=== PATIENT | male | born 1940 | race African-American/Black ===

== ENCOUNTER 2019-01-17 05:57 | Inpatient (IN) | payer MEDICARE, OTHER ==
[~2019-01-17] VITALS: Ht 175.3 cm; Wt 108.4 kg
[2019-01-17] MEDS ORDERED: FAMOTIDINE 20MG/2ML VIAL IV STA (06:38)
[2019-01-17 08:05] LABS: BASOPHILS % 0.8 % (0.0-2.0); EOSINOPHILS % 1.6 % (0.0-5.0); HEMATOCRIT. 39.3 % (42.0-52.0); HEMOGLOBIN. 12.7 g/dL (14.0-18.0); LYMPHOCYTES % 11.9 % (20.0-50.0); MEAN CORPUSCULAR HEMOGLOBIN 31.1 pg (28.0-32.0); MEAN CORPUSCULAR VOLUME 96.3 fL (80.0-94.0); MEAN PLATELET VOLUME 8.5 fl (7.4-10.4); MONOCYTES % 6.3 % (2.0-8.0); NEUTROPHILS % 79.4 % (40.0-76.0); PLATELET 243 x1000/uL (130-400); RED BLOOD CELL COUNT 4.08 mill/uL (4.7-6.1); RED CELL DISTRIBUTION WIDTH 14.1 % (11.6-14.6)
[2019-01-17 08:12] LABS: PROTHROMBIN TIME 10.4 sec (9.6-11.0)
[2019-01-17 08:13] LABS: CHLORIDE 115 mEq/L (98-107)
[2019-01-17 11:01] LABS: CLARITY URINE CLEAR (CLEAR); COLOR URINE YELLOW (YELLOW); KETONES URINE NEGATIVE (NEGATIVE); LEUKOCYTE ESTERASE URINE TRACE (NEGATIVE); NITRITE URINE NEGATIVE (NEGATIVE); OCCULT BLOOD URINE NEGATIVE (NEGATIVE); PROTEIN URINE 3+ (NEGATIVE); SPECIFIC GRAVITY URINE 1.021 (1.005-1.030); UROBILINOGEN URINE 0.2 E.U./dL (0.2-1.0)
[2019-01-17] MEDS ORDERED: INSULIN REGULAR (HUMULIN R) 300UNITS/3ML IV ONE (11:45)
[2019-01-17] MEDS ORDERED: CALCIUM GLUCONATE 1,000 MG in DEXT 5% WATER 100 ML IV ONE (11:45)
[2019-01-17] MEDS ORDERED: DEXTROSE 50% WATER 50ML SYRINGE IV ONE (11:45)
[2019-01-17 11:48] LABS: PHOSPHORUS 2.8 mg/dL (2.5-4.9)
[2019-01-17 12:00] VITALS: BP 126/77
[2019-01-17 12:59] VITALS: BP 126/77
[2019-01-17 13:24] LABS: TOTAL IRON BINDING CAPACITY 252 ug/dL (250-450)
[2019-01-17] MEDS ORDERED: ONDANSETRON HCL 4MG/2ML INJ IV PRN (15:15)
[2019-01-17] MEDS ORDERED: DIPHENHYDRAMINE 50MG/ML VIAL IV PRN (15:15)
[2019-01-17] MEDS ORDERED: MAGNESIUM/ALUMINUM HYDROXIDE/SIMETHICONE 30ML UDC PO PRN (15:15)
[2019-01-17] MEDS ORDERED: TEMAZEPAM 15MG CAPSULE PO PRN (15:15)
[2019-01-17] MEDS ORDERED: CLONIDINE 0.1MG TABLET PO PRN (15:15)
[2019-01-17] MEDS ORDERED: ACETAMINOPHEN 325MG TABLET PO PRN (15:15)
[2019-01-17] MEDS ORDERED: LORAZEPAM 0.5MG TABLET PO PRN (15:15)
[2019-01-17] MEDS: SODIUM CHLORIDE 0.9% 1,000 ML IV SCH (15:58)
[2019-01-17 16:00] VITALS: BP 118/70
[2019-01-17] MEDS: CITRIC ACID/SODIUM CITRATE SOLN 15ML UDC PO SCH (18:58)
[2019-01-17 20:00] VITALS: BP 150/77
[2019-01-18] VITALS: BP 140/70
[2019-01-18] MEDS: SODIUM CHLORIDE 0.9% 1,000 ML IV SCH ×2 (03:37→12:22)
[2019-01-18 04:00] VITALS: BP 129/76
[2019-01-18 06:37] LABS: BASOPHILS % 0.7 % (0.0-2.0); EOSINOPHILS % 3.7 % (0.0-5.0); HEMATOCRIT. 30.9 % (42.0-52.0); HEMOGLOBIN. 10.1 g/dL (14.0-18.0); LYMPHOCYTES % 20.7 % (20.0-50.0); MEAN CORPUSCULAR HEMOGLOBIN 31.2 pg (28.0-32.0); MEAN CORPUSCULAR VOLUME 95.5 fL (80.0-94.0); MEAN PLATELET VOLUME 8.6 fl (7.4-10.4); MONOCYTES % 14.4 % (2.0-8.0); NEUTROPHILS % 60.5 % (40.0-76.0); PLATELET 201 x1000/uL (130-400); RED BLOOD CELL COUNT 3.23 mill/uL (4.7-6.1); RED CELL DISTRIBUTION WIDTH 14.3 % (11.6-14.6)
[2019-01-18 06:53] LABS: PHOSPHORUS 2.7 mg/dL (2.5-4.9)
[2019-01-18 08:00] VITALS: BP 115/70
[2019-01-18] MEDS: CITRIC ACID/SODIUM CITRATE SOLN 15ML UDC PO SCH ×3 (09:36→17:35)
[2019-01-18] MEDS: FAMOTIDINE 20MG/2ML VIAL IV SCH (09:37)
[2019-01-18] MEDS ORDERED: SODIUM POLYSTYRENE SULFONATE 15 G/60 ML BOT PO NR (11:00)
[2019-01-18 12:30] VITALS: BP 139/55
[2019-01-18 12:43] LABS: CREATINE KINASE 63 IU/L (39-308)
[2019-01-18 16:00] VITALS: BP 138/82
[2019-01-18 20:00] VITALS: BP 135/72
[2019-01-19] VITALS: BP 129/70
[2019-01-19] MEDS: SODIUM CHLORIDE 0.9% 1,000 ML IV SCH ×2 (01:37→08:11)
[2019-01-19 04:00] VITALS: BP 125/66
[2019-01-19 06:58] LABS: BASOPHILS % 0.7 % (0.0-2.0); EOSINOPHILS % 4.6 % (0.0-5.0); HEMATOCRIT. 28.3 % (42.0-52.0); HEMOGLOBIN. 9.5 g/dL (14.0-18.0); LYMPHOCYTES % 14.7 % (20.0-50.0); MEAN CORPUSCULAR VOLUME 95.1 fL (80.0-94.0); MEAN PLATELET VOLUME 8.5 fl (7.4-10.4); PLATELET 184 x1000/uL (130-400); RED BLOOD CELL COUNT 2.98 mill/uL (4.7-6.1); RED CELL DISTRIBUTION WIDTH 13.6 % (11.6-14.6)
[2019-01-19 08:00] VITALS: BP 132/78
[2019-01-19] MEDS: CITRIC ACID/SODIUM CITRATE SOLN 15ML UDC PO SCH ×2 (09:09→12:28)
[2019-01-19] MEDS: FAMOTIDINE 20MG/2ML VIAL IV SCH (09:09)
[2019-01-19 11:39] VITALS: BP 136/72
[2019-01-19 15:14] VITALS: BP 110/56
[2019-01-19 16:00] VITALS: BP 128/62
[2019-01-19 17:13] LABS: ANTI-NUCLEAR ANTIBODIES DIRECT Negative (Negative)
[2019-01-20 13:16] LABS: COMPLEMENT C3 139 mg/dL (82-167)
== END 2019-01-19 16:30 | disposition home or self-care (01) | DRG 378 ==
LOC: ER 06:27 → 5WST 08:38 → EDBEDREQ 08:47 → CANRESERV 11:04 → ENRESERV 11:35
PROVIDERS: ADMIT Internal Medicine; ATTEND Internal Medicine
DX: K92.2 Gastrointestinal hemorrhage, unspecified (principal); N17.9 Acute kidney failure, unspecified; K57.92 Diverticulitis of intestine, part unspecified, without perforation or abscess without bleeding; R71.0 Precipitous drop in hematocrit; E87.5 Hyperkalemia; N18.9 Chronic kidney disease, unspecified; E66.9 Obesity, unspecified; K42.9 Umbilical hernia without obstruction or gangrene; Z87.891 Personal history of nicotine dependence; Z90.49 Acquired absence of other specified parts of digestive tract; Z68.35 Body mass index [BMI] 35.0-35.9, adult; Z79.899 Other long term (current) drug therapy; Z79.82 Long term (current) use of aspirin
CPT/HCPCS: 36415; 76770; 80048; 82550; 82570; 82728; 83540; 83550; 83735; 84100; 84156; 86038; 86160; 86850; 86900; 86920; 93005; 96374; 99285; C1893; J0610; J1815; J3490; J7030; J7060

== ENCOUNTER 2023-01-06 22:00 | Emergency (ER) | payer MEDICARE, OTHER ==
[~2023-01-06] VITALS: Ht 175.3 cm; Wt 91.0 kg
[2023-01-06 22:05] VITALS: BP 152/61
[2023-01-06] MEDS ORDERED: DIPHENHYDRAMINE 25MG CAPSULE PO ONE (22:30)
[2023-01-07] MEDS ORDERED: ACETAMINOPHEN 325MG TABLET PO ONE
== END 2023-01-07 11:03 | disposition home or self-care (01) ==
LOC: ER 22:00
DX: M54.50 Low back pain, unspecified (principal); I10 Essential (primary) hypertension; M54.2 Cervicalgia; W01.0XXA Fall on same level from slipping, tripping and stumbling without subsequent striking against object, initial encounter; Y93.89 Activity, other specified; Y92.89 Other specified places as the place of occurrence of the external cause; Y99.8 Other external cause status
CPT/HCPCS: 71250; 72125; 72128; 72131; 99284; Q0163